=== PATIENT | female | born 1965 ===

== ENCOUNTER 2017-03-27 19:54 | Emergency (ER) | payer OTHER ==
[2017-03-27 19:54] VITALS: BMI 30.3
[2017-03-27 20:09] VITALS: BP 150/90; PULSE 71; RESP 14; TEMP 97.9; O2SAT 100
--- NOTE | 2017-03-27 20:49 | C.PDOC ---
History Of Present Illness 51 yo female w/o significant PMHx come in for evaluation of head injury sustained NOTEREADER at home. As per family, " heavy wood piece fell on top of head, while she was cleaning the shelf". Pt sustained small puncture wound to head and c/o mild headache, nausea now. Pt reports, took Alive NOTEREADER for headache. Otherwise, pt and family denies LOC, syncope, denies worse headache of life, visual changes, focal deficits, vomiting, neck pain, denies any other active complaints. Ambulate to ED for evaluation, appears in pain. Time Seen by Provider: 03/27/17 20:02 Chief Complaint (Nursing): Abnormal Skin Integrity History Per: Patient History/Exam Limitations: no limitations Onset/Duration Of Symptoms: Sudden Onset (NOTEREADER) Past Medical History Reviewed: Historical Data, Nursing Documentation, Vital Signs Vital Signs: Last Vital Signs Temp 97.9 F 03/27/17 20:07 Pulse 71 03/27/17 20:07 Resp 14 03/27/17 20:07 BP 150/90 03/27/17 20:07 Pulse Ox 100 03/27/17 21:03 - Medical History PMH: Denies: Chronic Kidney Disease - [facility] Procedures ENDOSC POLYPECTOMY OF LG INTEST (05/17/14) Family History: States: No Known Family Hx - Social History Hx Tobacco Use: No Hx Alcohol Use: No Hx Substance Use: No - Immunization History Hx Tetanus Toxoid Vaccination: No Hx Influenza Vaccination: No Hx Pneumococcal Vaccination: No Review Of Systems Except As Marked, All Systems Reviewed And Found Negative. Eyes: Negative for: Vision Change Gastrointestinal: Positive for: Nausea. Negative for: Vomiting Musculoskeletal: Negative for: Neck Pain Skin: Positive for: Other (Puncture wound to the head) Neurological: Positive for: Headache (Mild) Physical Exam - Physical Exam Appears: Well, Non-toxic, No Acute Distress Skin: Normal Color, Warm, Dry Head: Normacephalic, Laceration (small 1cm puncture lacetaion to top of head, mild edema. No palpable bony deformity, mild bloody oozng from wound noted.) Eye(s): bilateral: PERRL, EOMI Ear(s): Bilateral: Normal Nose: No Flaring, No Discharge, No Deformity, No Tenderness Oral Mucosa: Moist Tongue: Normal Appearing Lips: Normal Appearing Throat: No Drooling Neck: Normal ROM, Trachea Midline, No Midline Cervical Tenderness, No Paracervical Tenderness, No Step Off Deformity, Supple Chest: Symmetrical, No Deformity Cardiovascular: Rhythm Regular Respiratory: No Decreased Breath Sounds, No Accessory Muscle Use, No Stridor, No Wheezing Gastrointestinal/Abdominal: Soft, No Tenderness Back: No Vertebral Tenderness Extremity: Normal ROM, No Pedal Edema, No Deformity, No Swelling Neurological/Psych: Oriented x3, Normal Speech, Normal Motor, Normal Sensation, Normal Reflexes ED Course And Treatment O2 Sat by Pulse Oximetry: 100 (RA) Pulse Ox Interpretation: Normal - CT Scan/US CT - Head Other Rad Studies (CT/US): Read By Radiologist CT/US Interpretation: Accession No. : [id number]. Patient Name / ID : SANTY US / [id number]. Exam Date : 03/27/2017 21:28:56 ( Approved ). Study Comment : Sex / Age : F / 51Y. Creator : Shona Urena MD. 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 Approver2 : Report Date : 03/27/2017 22:17:00. My Comment : . [facility] Division of Radiology. [address] [place] [address]. Tel. no. . . . Patient Name: MAGEN MADERA . Pt. Address: [address] [place] [address]. Rec # : [id number]. [place] [address]: Barbi Knox. Pt Order Location: [facility] : 1965 Female Age: 51 Order #: [id number]. Reason for exam: injury. . . . . . CT Scan. . . HEAD W /O CONTRAST Exam Date: 03/27/17. . This imaging exam was performed at [facility], [place]. EXAM: CT Head Without Intravenous Contrast. . CLINICAL HISTORY: 51 years old, female; Injury or trauma; Fall; Initial encounter; Abrasion;. Head, generalized. . TECHNIQUE: Axial computed tomography images of the head/brain without intravenous. contrast. All CT scans at this facility use one or more dose reduction. techniques, viz. : automated exposure control; ma/kV adjustment per patient size. (including targeted exams where dose is matched to indication; i.e. head); or. iterative reconstruction technique. Coronal and sagittal reformatted images were created and reviewed. . COMPARISON: No relevant prior studies available. . FINDINGS : Brain: No hemorrhage. No significant white matter disease. No edema. Ventricles: No hydrocephalus. Bones: Skull is intact. Soft tissues: Right skin arielle. Correlate clinically for soft tissue injury. Sinuses: Mild paranasal sinus mucosal thickening. Mastoid air cells: No mastoid effusion. . IMPRESSION: No CT evidence of acute intracranial abnormality. Details as above. . Dictated By: Shona Urena MD. Dictated Date/Time: 03/27/172216. Signed By: Shona Urena. Date Signed: 03/27/172216. Transcribed By: [facility]. Transcribe Date/Time: 03/27/172216. PAOLO/VIVIENNE Progress Note: On re-evaluation, pt is afebrile, hemodynamicaly stable. Non- toxic. Ambulatory in ED with stable gait. PulseOx 100% RA. Head: (+) contusion with small laceration to top of head, repaied with arielle. No palpable bony deformity. Neck: SUpple, (-) midline tenderness. ENT: no signs of injury. Lungs: CTA B/L, BS equal B/L. Abd: benign. Neuorlogicaly intact. Imaging review and appears normal. Pt has clinical findings c/w head injury, scalp laceration s/p repair w/arielle. Pt was advised on wound care, advised OBS 48 hrs for any sign of head injury-return to ED if any new changes. ref. to F/u with PMD in 2-3 days for re-eval. return to ED if any worsening or new changes. Laceration - Laceration Repair Scalp laceration Wound Length (In cm): 1cm Description Of Wound: Linear Anesthesia: Lidocaine 2% Wound Examination: Irrigated With Saline, No FB With Wound Exploration Wound Closure: Arielle (#3) Suture Technique And Material Used: Interrupted Wound Complexity: Simple Medical Decision Making Medical Decision Making: PLAN: * CT - Head * POC * Zofran PO * Tetanus IM Disposition Counseled Patient/Family Regarding: Studies Performed, Diagnosis, Need For Followup, Rx Given - Disposition Referrals: [facility] [Outside] Disposition: HOME/ ROUTINE Disposition Time: 22:20 Condition: STABLE Additional Instructions: OBSERVE 48 HOURS FOR ANY SIGN OF HEAD INJURY-INTRACTABLE HEADACHE, VOMITING, VISUAL CHANGES OR ANY OTHER NEW CHANGES-RETURN TO ED IMMEDIATELY FOR RE- EVALUATION. KEEP WOUND DRY FOR 24 HOURS AVOID SHOWER. ARIELLE REMOVAL IN 10 DAYS FOLLOW UP WITH PMD NEED IN 2 DAYS FOR RE-EVALUATION. 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 - Scribe Statement The provider has reviewed the documentation as recorded by the Scribe Winter Chance All medical record entries made by the Scribe were at my direction and personally dictated by me. I have reviewed the chart and agree that the record accurately reflects my personal performance of the history, physical exam, medical decision making, and the department course for this patient. I have also personally directed, reviewed, and agree with the discharge instructions and disposition.
--- NOTE | 2017-03-27 22:17 | CT ---
EXAM: CT Head Without Intravenous Contrast CLINICAL HISTORY: 51 years old, female; Injury or trauma; Fall; Initial encounter; Abrasion; Head, generalized TECHNIQUE: Axial computed tomography images of the head/brain without intravenous contrast. All CT scans at this facility use one or more dose reduction techniques, viz.: automated exposure control; ma/kV adjustment per patient size (including targeted exams where dose is matched to indication; i.e. head); or iterative reconstruction technique. Coronal and sagittal reformatted images were created and reviewed. COMPARISON: No relevant prior studies available. FINDINGS: Brain: No hemorrhage. No significant white matter disease. No edema. Ventricles: No hydrocephalus. Bones: Skull is intact. Soft tissues: Right skin tad. Correlate clinically for soft tissue injury. Sinuses: Mild paranasal sinus mucosal thickening. Mastoid air cells: No mastoid effusion. IMPRESSION: No CT evidence of acute intracranial abnormality. Details as above.
== END 2017-03-27 22:36 | disposition home or self-care (01) ==
LOC: C.ER 19:54
DX: S01.01XA Laceration without foreign body of scalp, initial encounter (principal); W20.8XXA Other cause of strike by thrown, projected or falling object, initial encounter; Y93.E9 Activity, other interior property and clothing maintenance; Y92.009 Unspecified place in unspecified non-institutional (private) residence as the place of occurrence of the external cause; Z23 Encounter for immunization

== ENCOUNTER 2017-03-30 12:49 | Emergency (ER) | payer OTHER ==
[2017-03-30 13:07] VITALS: BMI 28.3
[2017-03-30 13:09] VITALS: BP 143/84; PULSE 83; RESP 16; TEMP 98.5; O2SAT 99
--- NOTE | 2017-03-30 14:25 | C.PDOC ---
History Of Present Illness 51 year old female presents to the ED for evaluation of pain and swelling to her right arm which progressed over the past 3 days. Patient states she was evaluated in ED after suffering a head injury and sustaining a scalp laceration. Patient received tetanus vaccination to her right arm. Patient notes the pain and swelling is around the site of the injection and presents to the ED for further evaluation. She denies fever, chills. Time Seen by Provider: 03/30/17 13:47 Chief Complaint (Nursing): Abnormal Skin Integrity History Per: Patient History/Exam Limitations: no limitations Current Symptoms Are (Timing): Still Present Location Of Injury: Right: Arm Quality Of Symptoms: Painful, Swollen Additional History Per: Patient Past Medical History Reviewed: Historical Data, Nursing Documentation, Vital Signs Vital Signs: Last Vital Signs Temp 98.5 F 03/30/17 13:07 Pulse 83 03/30/17 13:07 Resp 16 03/30/17 13:07 BP 143/84 03/30/17 13:07 Pulse Ox 99 03/30/17 14:57 - Medical History PMH: No Chronic Diseases Denies: Chronic Kidney Disease Surgical History: No Surg Hx - [facility] Procedures ENDOSC POLYPECTOMY OF LG INTEST (05/17/14) Family History: States: Unknown Family Hx - Social History Hx Tobacco Use: No Hx Alcohol Use: No Hx Substance Use: No - Immunization History Hx Tetanus Toxoid Vaccination: No Hx Influenza Vaccination: No Hx Pneumococcal Vaccination: No Review Of Systems Constitutional: Negative for: Fever, Chills Skin: Positive for: Other (pain and swelling at site of tetanus immunization ) Physical Exam - Physical Exam Appears: Non-toxic, No Acute Distress Skin: Warm, Dry, Other (3-4cm area of erythematous irregular patch to right upper arm. warmth noted with mild tenderness. edges of erythema are marked ) Extremity: Normal ROM, Tenderness (to right upper arm ), Capillary Refill (less than 2 seconds ) Neurological/Psych: Oriented x3, Normal Speech, Normal Cognition ED Course And Treatment O2 Sat by Pulse Oximetry: 99 (on RA) Pulse Ox Interpretation: Normal Medical Decision Making Medical Decision Making: pt with warm erythematous patch to right arm s/p tetanus booster 3 days ago, will tx for cellulitis Progress: On reassessment, patient is resting comfortably, remains afebrile, and is stable for discharge. Patient is advised to follow up with PMD within 1-2 days for further evaluation and/or return to the ED if symptoms persist or worsen. Disposition Counseled Patient/Family Regarding: Diagnosis, Need For Followup, Rx Given - Disposition Referrals: Marisela Baker MD [Staff Provider] - Disposition: HOME/ ROUTINE Disposition Time: 14:26 Condition: STABLE Additional Instructions: Please take antibiotics as prescribed. Take Tylenol or Motrin for pain. Continue with cold compresses to arm several times a day. Follow up with your doctor or in medical clinic in a few days. Return to ER if redness on arm spreads beyond line drawn, swelling worsens or fever develops. 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 - Scribe Statement The provider has reviewed the documentation as recorded by the Scribe (Lita Velarde) All medical record entries made by the Scribe were at my direction and personally dictated by me. I have reviewed the chart and agree that the record accurately reflects my personal performance of the history, physical exam, medical decision making, and the department course for this patient. I have also personally directed, reviewed, and agree with the discharge instructions and disposition.
== END 2017-03-30 14:35 | disposition home or self-care (01) ==
LOC: C.ER 12:49
DX: L03.113 Cellulitis of right upper limb (principal)

== ENCOUNTER 2017-04-06 05:59 | Day surgery (SDC) | payer SELFPAY ==
[2017-04-06] MEDS ORDERED: ceFAZolin IV 2 gm in Dextrose 2 GM/50 ML BAG IVPB ONE (07:48)
[2017-04-06] MEDS ORDERED: Midazolam 2 MG/2 ML VIAL ONE (07:58)
[2017-04-06] MEDS ORDERED: Propofol 10 mg/ml Inj (20 ML) ONE (07:58)
[2017-04-06] MEDS ORDERED: Lactated Ringer's 1,000 ML IV ONE (08:00)
[2017-04-06] MEDS: Lidocaine 2% Inj (20ml) ONE ×2 (08:11→08:53)
[2017-04-06] MEDS: Bupivacaine HCl 0.5% PF (10 ml) Inj ONE ×2 (08:11→08:54)
[2017-04-06] MEDS ORDERED: Bacitracin Ointment 30 GM TUBE ONE (09:04)
[2017-04-06] MEDS ORDERED: Oxycodone/Acetaminophen 5/325 mg Tab PO PRN ×2 (09:31)
[2017-04-06] MEDS ORDERED: HYDROmorphone 0.5 mg/0.5 ml ISec IVP PRN (09:31)
--- NOTE | 2017-04-06 09:36 | PCM.SURG1 ---
Surgeon's Initial Post Op Note - Surgeon's Notes Surgeon: Lalito Airplane Pilot Photogrammetry: Aleksandr PGY 3 Type of Anesthesia: General LMA Anesthesia Administered By: uriah Pre-Operative Diagnosis: Left STJ/sinus tarsi symdrome. lateral ankle instability Operative Findings: see dictation Post-Operative Diagnosis: same Operation Performed: left sinus tarsi scope. left lateral ankle stab; modified brostrom Specimen/Specimens Removed: none Estimated Blood Loss: EBL {In ML}: 5 Blood Products Given: N/A Drains Used: No Drains Post-Op Condition: Good Date of Surgery/Procedure: 04/06/17 Time of Surgery/Procedure: 09:35
[2017-04-06] MEDS ORDERED: Lactated Ringer's 500 ML IV ONE (10:30)
[2017-04-06 11:22] VITALS: BP 122/87; PULSE 87; RESP 18; TEMP 97; O2SAT 100
--- NOTE | 2017-04-06 14:49 | RAD ---
PROCEDURE: Left Ankle Radiographs. HISTORY: s/p left lateral ankle stab w/ STJ scop e COMPARISON: 11/07/2016 FINDINGS: BONES: No acute fractures. Limitations of the current study: Detail obscured by overlying fiberglass cast. JOINTS: Normal. No osteoarthritis. Ankle mortise maintained. Talar dome intact SOFT TISSUES: Normal. OTHER FINDINGS: None. IMPRESSION: No acute findings related to/accounting for the clinical presentation. No significant interval change compared to the prior examination(s).
--- NOTE | 2017-04-10 09:22 | OP ---
PROCEDURE DATE: 04/06/2017 PREOPERATIVE DIAGNOSES: 1. 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 2. Left foot lateral ankle instability. POSTOPERATIVE DIAGNOSES: 1. 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 2. Left foot lateral ankle instability. PROCEDURE PERFORMED: 1. Left foot sinus tarsi arthroscopy. 2. Left foot lateral ankle stabilization, Brostrom procedure. SURGEON: Mariana Starkey DPM. LINUX SERVER ENGINEER: Robi Brandon DPM, PGY-3. TYPE OF ANESTHESIA: General sedation with popliteal block. ANESTHESIOLOGIST: . INDICATIONS: The patient is a 51-year-old female with the above-mentioned diagnoses. The patient has exhausted all forms of conservative treatment at this time and wished to have surgical intervention for the conditions listed above. After careful explanation of risks, benefits, and complications for the procedure, the patient signed consent form. All questions and concerns were addressed at this time. Prior to taking the patient to the OR, NPO status was verified, preoperative antibiotics were given. DESCRIPTION OF PROCEDURE: The patient was brought to the operating room, placed on the operating table in supine position. A thigh tourniquet was placed on the patient's left thigh at 350 mmHg. Following induction of general sedation, the left foot and ankle were prepped and draped in normal sterile manner and the procedure began. PROCEDURE #1: Left foot sinus tarsi arthroscopy: At this time, attention was directed to the lateral aspect of the patient's left ankle where first utilizing a #18 gauge needle, the sinus tarsi was identified and was insufflated with 15 mL of normal saline. Following this, utilizing a #15 blade, a linear incision was made directly overlying the sinus tarsi. This incision was then carried deep utilizing blunt dissection and making sure to retract all vital neurovascular structures. At this time, the cannula and trocar were then placed in through this portal, removing the trocar and placing the scope in there to visualize the sinus tarsi. At this time, it was noted that there was diffuse scarring and soft tissue impingement of the sinus tarsi, so attention was directed back lateral to the patient's foot, and roughly 1 cm distal to the other portal, another roughly 1 cm long incision was made utilizing #15 blade. At this time, a shaver was then inserted and triangulated with the arthroscope in the sinus tarsi. At this time, all impingement and fibrotic tissue was then debrided away from the sinus tarsi following this, the sinus tarsi was then much clear and much more visible in the arthroscopy. Multiple pictures were taken throughout the procedure for documentation purposes. Following this, the arthroscope and the shaver were then removed. The wound was flushed with copious amounts of normal sterile saline. The wounds were then closed with 4-0 nylon in normal sterile manner. PROCEDURE #2: Left foot lateral ankle stabilization: At this time, attention was directed to the dorsolateral aspect of the patient's left ankle. Utilizing a #15 blade, a curvilinear incision was made directly overlying the distal tip of the lateral fibula extended distally across the insertion of the anterior talofibular ligament on the distal aspect of the fibula and coursing distally to the talar neck. At this time, the incision was then carried deep utilizing sharp and blunt dissection making sure to retract all vital neurovascular structures. At this time, when the incision was then carried deep, there was noted to be a complete rupture of the ATFL off of the distal fibula and the entire anterior talofibular ligament was able to be grabbed with the forceps and moved back in to a better position. So, at this time, decision was made to do a classic Brostrom procedure with utilization of a 2-size Arthrex suture. The anterior talofibular ligament was grabbed and then sutured back onto the distal aspect of the anterior fibula. This procedure was performed with [id number] stitches and the foot held in a valgus to correct the everted stance to make sure the anterior talofibular ligament was sutured down intact. Following this, the wound was then flushed with copious amounts of normal sterile saline. The wound was reapproximated with 3-0, 4-0 Vicryl and 4-0 nylon in the Brostrom manner. POSTOPERATIVE CONDITION: The patient tolerated the anesthesia and procedure well and was transported to the recovery room with vital signs stable and neurovascular status intact to the left foot. The patient will follow up with Dr. Starkey in clinic as previously discussed with the patient. Mariana Starkey DPM
== END 2017-04-06 12:49 | disposition home or self-care (01) ==
LOC: C.SDS 05:59
PROVIDERS: ATTEND Podiatrist Foot & Ankle Surgery
DX: G57.52 Tarsal tunnel syndrome, left lower limb (principal); M25.372 Other instability, left ankle
CPT/HCPCS: 27695; 73600; 97116; 97161; G8978; G8979; G8980; J0690; J1100; J1170; J1885; J2250; J2405; J2704; J2765; J3010; J7120